=== PATIENT | male | born 1995 | race Caucasian/White ===

== ENCOUNTER 2019-09-27 07:49 | Emergency (ER) | payer OTHER ==
[~2019-09-27] VITALS: Ht 180.3 cm; Wt 86.2 kg
--- NOTE | 2019-09-27 08:15 | NUR ---
PATIENT TO ER #[id number]
[2019-09-27 08:25] VITALS: BP_SYST 129
--- NOTE | 2019-09-27 08:32 | NUR ---
PATIENT PRESENTS TO THE ER WITH HX OF FIG WASHER LACERATION TO RIGHT LATERAL THIGH TODAY AT 0700 WHILE OPENING BOXES AT WORK; NO OTHER TRAUMA, NO OTHER REMARKABLE S/S; PATIENT STATES TETANUS STATUS IS CURRENT; PREPARATIONS AT BEDSIDE TO REPAIR WOUND
[2019-09-27] MEDS ORDERED: BACITRACIN 1 GM OINT TP ONE (08:45)
[2019-09-27] MEDS ORDERED: LIDOCAINE 1% 10 MG/ML, 20 ML MDV SUBCUT ONE (08:45)
[2019-09-27] MEDS ORDERED: DIPH-TET-PERTUS Vaccine 0.5 ML VIAL (ADACEL) I.M. ONE (08:45)
[2019-09-27 09:49] VITALS: BP_SYST 159
--- NOTE | 2019-09-27 09:58 | NUR ---
REASSESSMENT; LACERATION REPAIR PER ERMD; VIVIAN WRAP OVER DRESSING ([employer]); PATIENT PREPARED FOR DISCHARGE; FULL DISTAL N/C/R REMAINS INTACT; TDAP HELD PER PATIENT (CURRENT ON TETANUS STATUS)
--- NOTE | 2019-09-27 09:59 | NUR ---
Patient given written and verbal discharge instructions and verbalizes understanding. ER MD discussed with patient the results and treatment provided. Patient in stable condition. ID arm band removed. Rx of TYLENOL given. Patient educated on pain management and to follow up with PMD. Pain Scale . Opportunity for questions provided and answered. Medication side effect fact sheet provided.
== END 2019-09-27 09:49 | disposition home or self-care (01) ==
LOC: SED 07:49
DX: S71.111A Laceration without foreign body, right thigh, initial encounter (principal); X58.XXXA Exposure to other specified factors, initial encounter; Y93.89 Activity, other specified; Y92.89 Other specified places as the place of occurrence of the external cause; Y99.8 Other external cause status
CPT/HCPCS: 12002; 99282; J2001